=== PATIENT | female | born 1955 | race Caucasian/White ===

== ENCOUNTER 2020-01-11 21:10 | Emergency (ER) | payer BC ==
--- NOTE | 2020-01-11 21:34 | EDM.PDOC ---
ED HPI GENERAL MEDICAL PROBLEM - General Chief Complaint: Eye Problems Stated Complaint: EYE INJURY Time Seen by Provider: 01/11/20 21:11 - History of Present Illness INITIAL COMMENTS - FREE TEXT/NARRATIVE: 64-year-old female no medications no antiplatelets no medical problems was helping pull the sheet and her hand slipped back and struck her in the left eye she came in out of concern regarding redness in the medial side of the eyeball no pain no blurry vision no diplopia no pain with extraocular movements no change in vision no exacerbating or alleviating factors radiation or other associated symptoms. - Related Data Allergies Allergy/AdvReac Type Severity Reaction Status Date / Time No Known Allergies Allergy Verified 01/11/20 21:24 Home Meds: Home Meds . [No Known Home Meds] 01/11/20 [History] Past Medical History HEENT History: Reports: None Cardiovascular History: Reports: None Respiratory History: Reports: None Gastrointestinal History: Reports: None CLINIC MANAGER History: Reports: None Musculoskeletal History: Reports: None Neurological History: Reports: None Psychiatric History: Reports: None Endocrine/Metabolic History: Reports: None Hematologic History: Reports: None Immunologic History: Reports: None Oncologic (Cancer) History: Reports: None Dermatologic History: Reports: None - Infectious Disease History Infectious Disease History: Reports: None - Past Surgical History Head Surgeries/Procedures: Reports: None Female Surgical History: Reports: Tubal Ligation Social & Family History - Tobacco Use Smoking Status *Q: Never Smoker Second Hand Smoke Exposure: No - Caffeine Use Caffeine Use: Reports: None - Recreational Drug Use Recreational Drug Use: No ED ROS GENERAL - Review of Systems Review Of Systems: See Below Free Text/Narrative/Comment: General: No fever. Eyes: Per HPI ENT: No sore throat. Neck: No neck stiffness. Musculoskeletal: No myalgias/arthralgias. Neurologic: No headache. ED EXAM GENERAL W FULL EYE - Physical Exam Exam: See Below Text/Narrative:: General Appearance: No acute distress, appears comfortable Skin: No rash HEENT: Normocephalic/atraumatic, sclera anicteric, mucous membranes moist, extra ocular movements intact bilaterally pupils PERRLA, left pupil normal in shape, subconjunctival hemorrhage from midnight to 4 PM on the medial aspect no separate conjunctival injection no hyphema no visual field cut no limitation in extraocular motion Neck: Normal range of motion Musculoskeletal: No edema or tenderness Neurologic: Awake, alert, no obvious deficits, moving all extremities Psychiatric: Appropriate, cooperative Course - Vital Signs Last Recorded V/S: Last Vital Signs Temp 97.2 F 01/11/20 21:23 Pulse 88 01/11/20 21:23 Resp 18 01/11/20 21:23 BP 159/81 H 01/11/20 21:23 Pulse Ox 98 01/11/20 21:23 Departure - Departure Time of Disposition: 21:32 Disposition: Home, Self-Care 01 Condition: Good Clinical Impression: Subconjunctival hemorrhage of left eye - Discharge Information *PRESCRIPTION DRUG MONITORING PROGRAM REVIEWED*: Not Applicable *COPY OF PRESCRIPTION DRUG MONITORING REPORT IN PATIENT SUSIE: Not Applicable Instructions: Subconjunctival Hemorrhage Referrals: [facility] [Outside] - 3 Days Additional Instructions: Your subconjunctival hemorrhage should resolve on its own over the next several days to few weeks. If you develop any new symptoms such as pain blurry vision or double vision please follow-up with ophthalmology. The following information is given to patients seen in the emergency department who are being discharged to home. This information is to outline your options for follow-up care. We provide all patients seen in our emergency department with a follow-up referral. The need for follow-up, as well as the timing and circumstances, are variable depending upon the specifics of your emergency department visit. If you don't have a primary care physician on staff, we will provide you with a referral. We always advise you to contact your personal physician following an emergency department visit to inform them of the circumstance of the visit and for follow-up with them and/or the need for any referrals to a consulting specialist. The emergency department will also refer you to a specialist when appropriate. This referral assures that you have the opportunity for follow-up care with a specialist. All of these measure are taken in an effort to provide you with optimal care, which includes your follow-up. Under all circumstances we always encourage you to contact your private physician who remains a resource for coordinating your care. When calling for follow-up care, please make the office aware that this follow-up is from your recent emergency room visit. If for any reason you are refused follow-up, please contact the [facility] Emergency Department at and asked to speak to the emergency department charge nurse. Sepsis Event Note (ED) - Evaluation Sepsis Screening Result: No Definite Risk - Focused Exam Vital Signs: Vital Signs Temp Pulse Resp BP Pulse Ox 01/11/20 21:23 97.2 F 88 18 159/81 H 98 - Assessment/Plan Assessment:: 64-year-old female presenting with subconjunctival hemorrhage no blurry vision or other ocular symptoms nothing that would suggest globe rupture. Nothing that would suggest no abrasion nothing that would suggest anterior chamber trauma. And again no vision changes. Anticipatory guidance provided ophthalmology follow-up provided as well.
== END 2020-01-11 21:44 | disposition home or self-care (01) ==
LOC: MW.ED 21:10
DX: H11.32 Conjunctival hemorrhage, left eye (principal); Z98.51 Tubal ligation status
CPT/HCPCS: 99282

== ENCOUNTER 2023-03-15 20:18 | Emergency (ER) | payer MEDICARE, BC ==
[2023-03-15] MEDS ORDERED: Sodium Chloride 0.9% 1,000 ML IV ONE ×2 (20:28→21:05)
[2023-03-15] MEDS ORDERED: Sodium Chloride 0.9% 10 ML Syringe FLUSH PRN (21:04)
[2023-03-15] MEDS ORDERED: Sodium Chloride 0.9% 2.5 ML Syringe FLUSH PRN (21:04)
[2023-03-15] MEDS ORDERED: Benzonatate 100 MG Cap PO ONE (21:06)
[2023-03-15 21:56] LABS: HEMATOCRIT 34.9 % (37.0-47.0); MEAN CORPUSCULAR HEMOGLOBIN 30.8 pg (28.0-32.0); MEAN CORPUSCULAR HGB CONC 34.4 g/dL (32.0-36.0); MEAN CORPUSCULAR VOLUME 89.7 fL (83.0-99.0); MEAN PLATELET VOLUME 9.5 fL (9.4-12.3); NRBC ABSOLUTE 0.03 K/uL (0.00-0.02); NRBC PERCENT 0.2 /100WBC (0.0-0.2); PLATELET COUNT,PLT 204 K/uL (150-400); RED BLOOD CELL COUNT 3.89 M/uL (4.10-5.30); WHITE BLOOD CELL COUNT,WBC 18.37 K/uL (3.9-11.3)
[2023-03-15 22:17] LABS: A/G RATIO 0.8 (0.9-1.6); ALBUMIN 3.1 g/dL (3.4-5.0); BILIRUBIN TOTAL 0.2 mg/dL (0.2-1.0); CALCIUM 9.1 mg/dL (8.5-10.1); CARBON DIOXIDE,CO2 27.6 mmol/L (21.0-32.0); CREATININE 0.9 mg/dL (0.6-1.0); PROTEIN TOTAL,TP 6.9 g/dL (6.4-8.2)
[2023-03-15 22:24] LABS: BAND ABSOLUTE MAN 0.7; BAND PERCENT MAN 4 %; LYMPHOCYTES ABSOLUTE MAN 0.9 (0.6-2.4); LYMPHOCYTES PERCENT MAN 5 % (16.0-40.0); MONOCYTES ABSOLUTE MAN 1.3 (0.0-0.8); MONOCYTES PERCENT MAN 7 % (0.0-15.0); SEG NEUTROPHILS ABSOLUTE MAN 15.4 (1.4-5.7); SEG NEUTROPHILS PERCENT MAN 84 % (48.0-80.0)
[2023-03-15 22:34] LABS: CORONAVIRUS COVID-19 NAA NEGATIVE (NEGATIVE); INFLUENZA A NAA NEGATIVE (NEGATIVE); INFLUENZA B NAA NEGATIVE (NEGATIVE); RESPIRATORY SYNCYTIAL VIR NAA NEGATIVE (NEGATIVE)
== END 2023-03-15 22:57 | disposition home or self-care (01) ==
LOC: MW.ED 20:18
DX: R05.9 Cough, unspecified (principal); Z20.822 Contact with and (suspected) exposure to COVID-19
CPT/HCPCS: 0241U; 36415; 71046; 80053; 85025; 99283; A9270; J3490; J7030; 99282

== ENCOUNTER 2023-11-11 06:41 | Day surgery (SDC) | payer MEDICARE, BC ==
[~2023-11-11 06:41] MED LIST: Sodium Chloride 0.9% 10 ML Syringe FLUSH PRN; Sodium Chloride 0.9% 2.5 ML Syringe FLUSH PRN; Sodium Chloride 0.9% 20 ML SDV IV PRN
[2023-11-11] MEDS: Lactated Ringers 1,000 ML IV SCH (07:17)
[2023-11-11] MEDS ORDERED: Bupivacaine 0.5% 30 ML SDV ONE (07:23)
[2023-11-11] MEDS ORDERED: Lidocaine 1% 20 ML MDV ONE (07:23)
[2023-11-11] MEDS ORDERED: Water For Injection, Sterile 20 ML ONE (07:32)
[2023-11-11] MEDS ORDERED: dexmedeTOMIDine HCl 200 MCG/2 ML SDV ONE (07:32)
[2023-11-11] MEDS ORDERED: Propofol 200 MG/20 ML SDV ONE ×2 (07:33→08:17)
[2023-11-11] MEDS ORDERED: Albuterol 0.083% 2.5 MG/3 ML Neb Soln NEB PRN (07:34)
[2023-11-11] MEDS ORDERED: droPERidol 5 MG/2 ML SDV IVPUSH PRN (07:34)
[2023-11-11] MEDS ORDERED: Morphine 2 MG/ML SYRINGE IVPUSH PRN (07:34)
[2023-11-11] MEDS ORDERED: Lidocaine 1% 5 ML VIAL ONE (07:34)
[2023-11-11] MEDS ORDERED: Naloxone 0.4 MG/ML SDV IVPUSH PRN (07:34)
[2023-11-11] MEDS ORDERED: fentaNYL 50 MCG/ML SDV IVPUSH PRN (07:34)
[2023-11-11] MEDS ORDERED: Ondansetron 4 MG/2 ML SDV IVPUSH PRN (07:34)
[2023-11-11] MEDS ORDERED: HYDROmorphone 1 MG/ML Syringe IVPUSH PRN (07:34)
[2023-11-11] MEDS ORDERED: Metoclopramide 10 MG/2 ML SDV IVPUSH PRN (07:34)
== END 2023-11-11 09:10 | disposition home or self-care (01) ==
LOC: MW.SDS 06:41
PROVIDERS: ATTEND Surgery
DX: Z45.2 Encounter for adjustment and management of vascular access device (principal); D64.9 Anemia, unspecified; I10 Essential (primary) hypertension; Z85.3 Personal history of malignant neoplasm of breast; Z79.899 Other long term (current) drug therapy; Z87.891 Personal history of nicotine dependence
CPT/HCPCS: 36590; J0665; J2704; J7120; J3490

== ENCOUNTER 2024-06-09 20:00 | Emergency (ER) | payer MEDICARE, BC | END 2024-06-10 01:46 | disposition left against medical advice (07) | LOC: MW.ED 20:00 | DX: Z53.21 Procedure and treatment not carried out due to patient leaving prior to being seen by health care provider (principal) | CPT/HCPCS: 87428-QW ==